=== PATIENT | male | born 1960 | race African-American/Black ===

== ENCOUNTER 2022-02-14 00:29 | Emergency (ER) | payer MEDICAID, OTHER ==
[~2022-02-14] VITALS: Ht 182.9 cm; Wt 90.9 kg
[2022-02-14 00:36] VITALS: BP 161/111
[2022-02-14] MEDS ORDERED: HEPARIN SODIUM (PORCINE) 5000 UNITS/ML 1ML VIAL ONE (00:42)
[2022-02-14] MEDS ORDERED: NITROGLYCERIN 50MG/250ML 250 ML IV ONE (00:42)
[2022-02-14] MEDS ORDERED: MIDAZOLAM HCL 2MG/2ML 2ml VIAL (1mg/ml) IV ONE (01:00)
[2022-02-14] MEDS ORDERED: NITROGLYCERIN 50MG/250ML 250 ML IV SCH (01:00)
[2022-02-14] MEDS ORDERED: SUCCINYLCHOLINE CHLORIDE 20 MG/ML 10ML VIAL IV ONE (01:00)
[2022-02-14] MEDS ORDERED: HEPARIN SODIUM (PORCINE) 5000 UNITS/ML 1ML VIAL IV ONE (01:00)
[2022-02-14 01:12] LABS: INR 1.13 (0.9-1.15)
[2022-02-14] MEDS ORDERED: PROPOFOL 100 ML IV SCH (01:15)
[2022-02-14 01:23] LABS: Albumin 3.7 g/dL (3.4-5.0); BUN/Creatinine Ratio 10.5; Calcium 7.9 mg/dL (8.5-10.1); Potassium 3.4 mmol/L (3.5-5.1)
[2022-02-14 01:25] LABS: Basophils # (auto) 0 10 ^3/uL (0-0.2); Basophils % (auto) 0.2 % (0.0-2.0); Eosinophils # (auto) 0.2 10 ^3/uL (0-0.8); Eosinophils % (auto) 1.4 % (0.0-7.0); Hematocrit 45.6 % (41.0-53.0); Hemoglobin 15.2 g/dL (13.5-17.5); Lymphocytes # (auto) 4.7 10 ^3/uL (0.4-5.4); Lymphocytes % (auto) 43.4 % (10.0-50.0); Mean Corpuscular Hemoglobin 30.1 pg (28.0-32.0); Mean Corpuscular Hgb Conc. 33.3 g/dL (32.0-36.0); Mean Corpuscular Volume 90.4 fL (80.0-100.0); Monocytes # (auto) 0.7 10 ^3/uL (0-1.3); Monocytes % (auto) 6.1 % (0.0-12.0); Neutrophils # (auto) 5.3 10 ^3/uL (1.6-8.6); Neutrophils % (auto) 48.9 % (37.0-80.0); Nucleated Red Blood Cells % 0.1 %; Red Blood Cells 5.04 10^6/uL (4.5-5.90); Red Cell Distribution Width 13.5 % (11.8-14.3); White Blood Cell 10.9 10^3/uL (4.4-10.8)
[2022-02-14 01:26] LABS: Bilirubin, Total 0.5 mg/dL (0.2-1.0); Total Protein 6.6 g/dL (6.4-8.2)
[2022-02-14 01:30] VITALS: BP 148/110
[2022-02-14 02:05] LABS: Cholesterol 184 mg/dL (< 200); HDL Cholesterol 75 mg/dL (40-59); LDL Cholesterol 103 mg/dL (< 100); Triglycerides 165 mg/dL (< 150)
[2022-02-14] MEDS ORDERED: PROTAMINE SULFATE 50 MG in SODIUM CHL 0.9% 50 ML IV ONE (02:15)
[2022-02-14] MEDS ORDERED: ONDANSETRON HCL 4 MG/2 ML VIAL IV ONE (02:15)
[2022-02-14 02:34] LABS: Alcohol, Urine < 3.0 mg/dL (0-10); Amphetamine Screen, Urine NEGATIVE (NEGATIVE); Barbiturate Scree,Urine NEGATIVE (NEGATIVE); Benzodiazephine Screen, Urine NEGATIVE (NEGATIVE); Cannabinoid Screen, Urine POSITIVE (NEGATIVE); Cocaine Screen, Urine NEGATIVE (NEGATIVE); Opiate Scree,Urine NEGATIVE (NEGATIVE); Phencyclidine Screen, Urine NEGATIVE (NEGATIVE)
[2022-02-14] MEDS ORDERED: PROTAMINE SULFATE 10 MG/ML 5ML VIAL IV ONE (02:43)
[2022-02-14 03:02] VITALS: BP 122/77
== END 2022-02-14 03:38 | disposition short-term general hospital (02) ==
LOC: EDBD 00:29 → ER 00:32
DX: S06.6XAA Traumatic subarachnoid hemorrhage with loss of consciousness status unknown, initial encounter (principal); J96.90 Respiratory failure, unspecified, unspecified whether with hypoxia or hypercapnia; R41.82 Altered mental status, unspecified; X58.XXXA Exposure to other specified factors, initial encounter; Y93.89 Activity, other specified; Y92.89 Other specified places as the place of occurrence of the external cause; Y99.8 Other external cause status
CPT/HCPCS: 31500; 36415; 36600; 70450; 71045; 80053; 80061; 80307; 82805; 83880; 84484; 85025; 85610; 85730; 87070; 87077; 87186; 87205; 93005; 96365; 96375; 99291; 99292; A4618; J1644; J2405; J2704; J2720; 94002